=== PATIENT | male | born 1955 | race Caucasian/White ===

== ENCOUNTER → 2018-10-24 | Day surgery (SDC) | payer BC ==
[~2018-10-24] MED LIST: ASPIR 8181 MG PO; CINNAMON500 MG PO; FENTANYL CITRATE/PF 100MCG/2 ML INJ ONE; FISH OIL 1,0001 EAC2 PO; HYOSCYAMINE SULFATE 0.5 MG/ML INJ ONE; LEVEMIR100 UNIT/1 SQ; LIDOCAINE HCL 2% LOCAL INJ 5 ML SDV VIAL INJ ONE; LISINOPRIL10 MG PO; METFORMIN HCL500 MG PO; MIDAZOLAM HCL 2 MG/2 ML VIAL ONE; MULTI-VITAMIN1 EACH PO; NOVOLOG100 UNITS1 SQ; PHENYLEPHRINE HCL 1% 10 MG/ML VIAL ONE; SIMVASTATIN20 MG PO
--- NOTE | 2018-10-24 07:20 | NUR ---
SPIRITUAL CARE - Pre-Surgery Assessment: Pt in bed. Pt's at bedside. Pt reported supportive attention from family and friends. Intervention: I provided pastoral presence, hospitality, prayer, and sympathetic listening. 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 Outcome: Pt expressed appreciation for visit. No need for follow up indicated at this time. LY JEFF Nail [employer]ter Spiritual Care Department O: [phone] Pager: [phone] ([phone] calling from)
[2018-10-24 09:10] VITALS: BP 103/70
--- NOTE | 2018-10-24 09:45 | Operative Report ---
DATE OF PROCEDURE: October 24, 2018 REFERRING PHYSICIAN: Dr. Manfred Carlos PROCEDURE PERFORMED: Colonoscopy and polypectomy. INDICATIONS FOR COLONOSCOPY: Colorectal cancer screening. MEDICATION: Patient was done under MAC. Please see anesthesiologist's note. PROCEDURE: With the patient in the left lateral decubitus position, the flexible fiberoptic Olympus colonoscope was inserted into the rectum with ease and advanced all the way to the cecum. The scope was then withdrawn slowly. Mucosa overlying the cecum and ascending colon appeared to be within normal limits. One polyp was hot biopsied and 2 polyps were snared from the transverse colon. One polyp was snared from the descending colon. One polyp was hot biopsied from the sigmoid colon. Two polyps were snared from the rectum. The scope was then retroflexed into the distal rectum, and small internal hemorrhoids were noted, none of which was actively bleeding. The scope was then straightened out. It was subsequently withdrawn. Patient tolerated the procedure well. IMPRESSION 1. Transverse colon polyps x3, two snared and one hot biopsied. 2. Descending colon polyp x1 snared. 3. Sigmoid colon polyp x1, hot biopsied. 4. Rectal polyps x2, snared. 5. Internal hemorrhoids, none actively bleeding. PLAN: Follow up histology. Initiate high-fiber, low-fat diet. Initiate high-fiber supplement. A total of 7 polyps were removed. Patient might benefit from a followup colonoscopy in 3 years. Job#: [id number] cc:MELANIA CARLOS DO
== END | disposition home or self-care (01) ==
LOC: ENDO 05:28
PROVIDERS: ATTEND Internal Medicine Gastroenterology
DX: Z12.11 Encounter for screening for malignant neoplasm of colon (principal); D12.3 Benign neoplasm of transverse colon; D12.4 Benign neoplasm of descending colon; K62.1 Rectal polyp; K64.8 Other hemorrhoids; E11.9 Type 2 diabetes mellitus without complications; I10 Essential (primary) hypertension; I44.4 Left anterior fascicular block; Z01.810 Encounter for preprocedural cardiovascular examination; Z79.4 Long term (current) use of insulin; Z79.82 Long term (current) use of aspirin; Z68.30 Body mass index [BMI] 30.0-30.9, adult
CPT/HCPCS: 36415; 45384; 45385; 82948; 93005; J1980; J2001; J2250; J2370; 45378